=== PATIENT | female | born 1935 | race Caucasian/White ===

== ENCOUNTER → 2017-05-23 | Day surgery (SDC) | payer MEDICARE ==
[~2017-05-23] MED LIST: 1-ME1LIQ PO; ACETAMINOPHEN 1000 MG/100 ML VIAL IV ONE; AMLO10TA2 PO; ANAS1TAB PO; ASPI325T33 PO; ASPI81CH37 CHEW; ATOR10TA15 PO; BUPIVACAINE/EPINEPHRINE 0.25% PF 30 ML VIAL INFIL ONE; ENAL20TA PO; GABA100C4 PO; ISOSULFAN BLUE 50 MG/5 ML VIAL SQ ONE; KETOROLAC TROMETHAMINE 30 MG/ML (IVP) VIAL IV PUSH ONE; LACTATED RINGER'S 1000 ML INJ 1,000 ML ONE; LEVO.1 PO; LIDOCAINE 1%/EPINEPHrine 1:100,000 SOLN 20 ML VIAL ONE; LORA5SOL3 PO; METF1000 PO; METF500 PO; MIDAZOLAM HCL 2 MG/2 ML VIAL ONE; ONDANSETRON HCL 4 MG/2 ML VIAL IV PUSH ONE; PROPOFOL 100 MG/10 ML INJ IV ONE; SODIUM CHLORIDE 0.9% INJ 10 ML ONE; TRAM50TA PO; VASO10TA8 PO; ceFAZolin 2 GM PREMIX 50 ML ONE
--- NOTE | 2017-05-24 11:21 | RADONCOP ---
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 SURGEON: Yang Dueñas ANESTHESIA: General ESTIMATED BLOOD LOSS: Minimal INDICATIONS: Patient is a 81 year old female presenting with . She has elected to receive targeted intraoperative radiation therapy to the . DESCRIPTION OF PROCEDURE: Patient was taken to the operating room and placed on the table in the supine position. Following induction of general anesthesia, the and arm were prepped and draped sterilely. Ultrasound was performed of the breast to document the location of the breast malignancy. The wound was prepared for intraoperative radiation therapy. Based on the diameter of the cavity, a 4.0cm radiation applicator was selected for the delivery of intraoperative radiation therapy. The applicator was then sterilely mounted onto the Intrabeam Stand. Retracting sutures were placed within the skin to be used to retract the skin edges away from the radiation source. The 4.0cm Radiation applicator was then sterilely inserted into the wound. The superficial purse-string suture was tied down. Ultrasound was performed of the breast to document conformity of the surgical margins and the distance from the applicator to the skin surface (0.83cm). The retracting sutures were then secured and a moistened lap pad was placed on the skin surface, followed by an external radiation barrier. Intraoperative radiotherapy was then initiated by the Radiation Oncologist. Total treatment time was 25 minutes. Upon completion of the intraoperative radiotherapy treatment, the radiation applicator, purse-string sutures and retracting sutures were removed from the wound. The wound was once again irrigated. Hemostasis was confirmed. The patient was then turned back over to the surgeon, Yang Dueñas in stable condition for completion of surgical procedure. Luis Enrique Ontiveros MD 05/24/2017 11:21:21 AM This report was verified and signed electronically [facility] [address] [place] [address] RADIATION ONCOLOGY OPERATIVE REPORT Date: 05/23/2017 Patient Name: Leeann Camacho
--- NOTE | 2017-05-24 11:21 | RADONCENDT ---
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 FOLLOW UP PLAN: Patient to be seen in 6 weeks. Luis Enrique Ontiveros MD 05/24/2017 11:20:53 AM This report was verified and signed electronically [facility] [address] [facility] [place] [address] RADIATION ONCOLOGY END OF TREATMENT SUMMARY Date: 05/23/2017 Patient Name: Leeann Camacho Date of : 1935 Age: 81 Sex: Female
--- NOTE | 2017-05-24 20:17 | MP ---
cc: GABECHELSEAY DATE OF SURGERY: 05/23/2017 PREOPERATIVE DIAGNOSIS: Carcinoma of the right breast. POSTOPERATIVE DIAGNOSIS: Carcinoma of the right breast. OPERATION: 1. Needle localized wide excision, right breast, with right axillary sublingual nitroglycerin, biopsy and axillary sampling. 2. Intraoperative radiation therapy. SURGEON: Dr. Dueñas. ANESTHESIA: General. DORMITORY COUNSELOR: Tisha Wright MS3 ANESTHESIA: General. OPERATIVE FINDINGS The patient was found to have a palpable mass in the area of the guidewire which had been inserted preoperatively. The sentinel node was identified with heavy radioactivity. Lymphazurin was not used in this operation. OPERATIVE PROCEDURE The patient was brought to the operating room after having undergone needle localization of a mass in the right breast which had previously been biopsied. She also underwent radionuclide injection for purpose of identifying a sentinel node. After satisfactory general anesthesia had been obtained, the breast and right axilla were prepped and draped in the usual sterile fashion. The skin was marked with a sterile pen to make an elliptical incision between the guidewire and the nipple and areola. The incision was made carried out sharply through the subcutaneous tissue with cautery being used for hemostasis. The guidewire was identified and grasped within the parenchyma of the breast and amputated at the level of the skin. It was brought within the wound and flaps around the incision were made to leave approximately a centimeter of tissue for the radiation therapy. The mass was then grasped with Allis forceps and the needle and the mass were dissected free and sent for specimen mammography which revealed the presence of the lesion and the clip. It was then sent for permanent pathology. Hemostasis was strictly assured and a pursestring suture of zero Prolene was placed to encircle the tissue approximately a centimeter deep to the skin. The radiation probe was then selected at #4 and placed within the wound with the pursestring drawn tight but not tied. Ultrasound revealed good placement of the probe in the area. The probe was then placed within a sterile shield and attached to the radiation machine. The probe was then placed within the breast parenchyma by carefully guiding it directly. After proper placement was achieved, the pursestring was drawn tight and secured. The area was protected with sterile saline, soaked lap pads and the radiation shield was then built around the probe to protect the patient. The surgical team then left the room as the patient received 27 minutes of radiation therapy. At the conclusion of the radiation therapy the probe was removed after cutting the pursestring suture. It was then handed back to the physicist without incident. The area was made hemostatic once again and the skin was then closed with interrupted 4-0 PDS subcuticular stitches. Attention was then turned to the axilla which had a paresh on it from radiology to indicate the general location of the sentinel node. The skin was anesthetized with 0.5% Marcaine with epinephrine and a transverse infra-axillary incision was made and carried down sharply through the subcutaneous tissue with the cautery being used for hemostasis. An incision was deepened into the axilla proper by incising the clavipectoral fascia. The entire incision was deepened in the axilla and the sentinel node was identified with the navigator probe. The area was grasped with Allis forceps and the area of the sentinel node was dissected free using the harmonic scalpel. An extra section of fatty tissue with probable lymph nodes in it was sent as well as axillary sampling. The sentinel node itself was marked with a silk suture and sent for permanent pathology. Hemostasis was assured after which the subcutaneous tissue was closed with interrupted 3-0 Vicryl suture and the skin was then closed with interrupted 4-0 PDS subcuticular stitches. Steri-Strips were placed on both incisions and the patient was then awakened and taken from the operating room in satisfactory condition, having tolerated the procedure without problem. ESTIMATED BLOOD LOSS: Less than 15 mL. The instrument, sponge, needle counts were reported as being correct x2 at the end of procedure. MD SOLE Weller/JULITA /4:17 PM /7:56 PM
== END | disposition home or self-care (01) ==
LOC: ESDC 08:39
PROVIDERS: ATTEND Surgery
DX: C50.911 Malignant neoplasm of unspecified site of right female breast (principal)
CPT/HCPCS: 00400; 01610; 19125; 38525; 77290; 77300; 77334; 77370; 77424; 88307; J0131; J0690; J1885; J2250; J2405; J3010; J7120; 77469; Q9968

== ENCOUNTER → 2017-07-26 | Day surgery (SDC) | payer MEDICARE ==
[~2017-07-26] VITALS: Ht 170.2 cm; Wt 88.0 kg
[~2017-07-26] MED LIST changes: +ACETAMINOPHEN 1000 MG/100 ML 100 ML IV SCH; -ACETAMINOPHEN 1000 MG/100 ML VIAL IV ONE; -BUPIVACAINE/EPINEPHRINE 0.25% PF 30 ML VIAL INFIL ONE; +CHLORHEXIDINE GLUCONATE 2 % 1 PACK (2 CLOTHS) TOPICAL PRN; +INSULIN HUMAN REGULAR 1,000 UNITS/10 ML VIAL SQ PRN; -ISOSULFAN BLUE 50 MG/5 ML VIAL SQ ONE; -KETOROLAC TROMETHAMINE 30 MG/ML (IVP) VIAL IV PUSH ONE; -LACTATED RINGER'S 1000 ML INJ 1,000 ML ONE; +LACTATED RINGER'S 1000 ML IV PRN; -LIDOCAINE 1%/EPINEPHrine 1:100,000 SOLN 20 ML VIAL ONE; +METOPROLOL TARTRATE 25 MG TAB PO PRN; -MIDAZOLAM HCL 2 MG/2 ML VIAL ONE; -ONDANSETRON HCL 4 MG/2 ML VIAL IV PUSH ONE; +POVIDONE IODINE 5% (ANTISEPSIS KIT) 4 APPLICATIONS EACH NARE PRN; -PROPOFOL 100 MG/10 ML INJ IV ONE; +SODIUM CHLORID 0.9% 500 ML IV PRN; -SODIUM CHLORIDE 0.9% INJ 10 ML ONE; +ceFAZolin 2 GM PREMIX 50 ML IV SCH; -ceFAZolin 2 GM PREMIX 50 ML ONE
[2017-07-26 11:52] VITALS: BP 116/59; PULSE 86; RESP 20; TEMP 98.2; O2SAT 96
== END | disposition home or self-care (01) ==
LOC: HSDC 10:52
PROVIDERS: ATTEND Surgery
DX: Z45.2 Encounter for adjustment and management of vascular access device (principal); C50.211 Malignant neoplasm of upper-inner quadrant of right female breast; Z53.29 Procedure and treatment not carried out because of patient's decision for other reasons
CPT/HCPCS: 99211; G0463

== ENCOUNTER 2017-07-28 05:40 | Day surgery (SDC) | payer MEDICARE ==
[2017-07-28] VITALS (7 sets, daily range): BP systolic 132–142; BP diastolic 64–91; PULSE 72–81; RESP 18–20; TEMP 97.9–98.3; O2SAT 93–97
[~2017-07-28] VITALS: Ht 170.2 cm; Wt 88.0 kg
[~2017-07-28 05:40] MED LIST changes: -ACETAMINOPHEN 1000 MG/100 ML 100 ML IV SCH; -ANAS1TAB PO; -ASPI81CH37 CHEW; -CHLORHEXIDINE GLUCONATE 2 % 1 PACK (2 CLOTHS) TOPICAL PRN; -INSULIN HUMAN REGULAR 1,000 UNITS/10 ML VIAL SQ PRN; -LACTATED RINGER'S 1000 ML IV PRN; -METOPROLOL TARTRATE 25 MG TAB PO PRN; -POVIDONE IODINE 5% (ANTISEPSIS KIT) 4 APPLICATIONS EACH NARE PRN; -SODIUM CHLORID 0.9% 500 ML IV PRN; -ceFAZolin 2 GM PREMIX 50 ML IV SCH
[2017-07-28] MEDS ORDERED: ANAS1TAB PO (06:49)
[2017-07-28] MEDS ORDERED: ASPI81CH37 CHEW (06:49)
[2017-07-28 07:20] LABS: AUTOMATED NEUTROPHIL # 3.8 TH/MM3 (1.8-7.7); BASOPHIL % 0.6 % (0.0-2.0); EOSINOPHIL # 0.2 TH/MM3 (0-0.4); EOSINOPHIL % 3.3 % (0.0-4.0); HEMATOCRIT 35.8 % (35.0-46.0); HEMO FLAGS DIFF FINAL; LYMPH % 24.6 % (9.0-44.0); LYMPHOCYTE # 1.6 TH/MM3 (1.0-4.8); MEAN CORPUSCULAR HEMOGLOBIN 30.3 PG (27.0-34.0); MEAN CORPUSCULAR HGB CONC 33.3 % (32.0-36.0); MONO % 12.5 % (0.0-8.0); PLATELET COUNT 228 TH/MM3 (150-450); RED BLOOD COUNT 3.94 MIL/MM3 (4.00-5.30); RED CELL DISTRIBUTION WIDTH 13.1 % (11.6-17.2); WHITE BLOOD COUNT 6.5 TH/MM3 (4.0-11.0)
[2017-07-28 07:30] LABS: APTT (PATIENT) 23.7 SEC (24.3-30.1); INTERNATIONAL NORMALIZED RATIO 0.9 RATIO; PROTHROMBIN TIME - PATIENT 10.2 SEC (9.8-11.6)
[2017-07-28] MEDS ORDERED: POVIDONE IODINE 5% (ANTISEPSIS KIT) 4 APPLICATIONS EACH NARE SCH (07:30)
[2017-07-28] MEDS ORDERED: CHLORHEXIDINE GLUCONATE 2 % 1 PACK (2 CLOTHS) TOPICAL SCH (07:30)
[2017-07-28] MEDS ORDERED: ceFAZolin 2 GM PREMIX 50 ML - implanted port/tunneled catheter insertion IV SCH (07:30)
[2017-07-28] MEDS ORDERED: SODIUM CHLORIDE 0.9% 1000 ML IV SCH (07:30)
[2017-07-28] MEDS ORDERED: VANCOMYCIN 1000 MG/NS 250 ML - implanted port/tunneled catheter IV SCH ×2 (07:30)
[2017-07-28] MEDS ORDERED: fentaNYL CITRATE 250 MCG/5 ML AMP ONE (09:21)
[2017-07-28] MEDS ORDERED: MIDAZOLAM HCL 5 MG/5 ML VIAL ONE (09:21)
--- NOTE | 2017-07-28 10:23 | PD.RAD ---
Post Procedure Progress Note Pre Procedure Diagnosis: (1) Breast cancer Post Procedure Diagnosis: (1) Breast cancer Procedure Date: Jul 28, 2017 Supervising Radiologist: Praful Galindo Proceduralist/Assist: Ankit Orozco, RT(R), Jovany Ferrell RT(R)() Anesthesia: Conscious Sedation Plan of Activity Patient to Unit: [facility]U Patient Condition: Good See PACS Report for procedural detail/treatment Praful Galindo MD Jul 28, 2017 10:23
[2017-07-28] MEDS ORDERED: SODIUM CHLORIDE 0.9% FLUSH 10 ML FLUSH IVF PRN (10:30)
--- NOTE | 2017-07-28 11:44 | RADRPT ---
EXAM DATE/TIME: 07/28/2017 10:14 [place] COMPARISON: No previous studies available for comparison. INDICATIONS : Patient with history of breast cancer in need of port placement for chemotherapy. MEDICAL HISTORY : Diabetes type 2 Fall risk level 1 - sensorium and coordination int Hypercholesterolemia Hypertension Hypothyroidism No Previous Radiation Therapy Preferred Language for Healthcare Information (Kazakh) Stroke SURGICAL HISTORY : Thyroidectomy Right breast in 2017 Right breast lumpectomy Breast biopsy in 2017 Colonoscopy in 2010 ENCOUNTER: Initial ACUITY: 4-6 months PAIN SCORE: 0/10 FLUORO TIME: 0.30 minutes IMAGE SERIES: 1 SEDATION TIME: 25 minutes ACCESS: Right internal jugular vein SEDATION: 1.) 1 mg midazolam (Versed) IV 2.) 50 mcg fentanyl (Sublimaze) IV Prophylactic antibiotics were administered with appropriate pre-procedure timing. Vancomycin within 2 hours of procedure, Ancef (or alternative) within 1 hour of procedure. DEVICE: 1. 8 [place]ian single lumen Bard Power Port PROCEDURE : 1. Continuous pulse oximetry and EKG monitoring. 2. Intravenous conscious sedation. 3. Ultrasound guidance for venous access. 4. Fluoroscopic guided implantable central venous port placement. The patient was placed supine. The neck was prepped in sterile fashion. Full sterile technique was u sed, including cap, mask, sterile gloves and gown, and a large sterile sheet. Hand hygiene and 2% ch lorhexidine Betadine was utilized per protocol for cutaneous antisepsis with appropriate dry time for site. Sterile gel and sterile probe cover were utilized for ultrasound guidance. The skin and sub cutaneous tissues were infiltrated with local anesthetic solution. Under direct ultrasound guidance, central venous access was accomplished in the targeted vessel. The ultrasound images depicting access guidance were stored and saved to PACS for permanent record. A s ubcutaneous pocket was created using blunt dissection. The port was introduced to the pocket. The c atheter tubing was fed through a subcutaneous tunnel to the venotomy site. The catheter tubing was c ut to a suitable length and then was introduced through a valved Peel-Away sheath and positioned with catheter tubing tip at the cavo-atrial junction level. The pocket incision was closed with subcutic ular Vicryl suture. Steri-Strips were applied. The port was flushed and locked with heparin solutio n per protocol. Sterile dressing was applied to the site. The patient tolerated the procedure well. Conscious sedation was performed with the prescribed dosages and duration as above in the presence of an independent trained radiology nurse to assist in the monitoring of the patient. EKG and oximetry remained stable throughout the procedure. The patient tolerated the procedure well and there were no complications. The patient was sent to post anesthesia recovery in stable condition. CONCLUSION: Uncomplicated ultrasound and fluoroscopic guided implanted central venous port catheter placement as described in detail above. An 8 Cambodian Power port was placed. Praful Galindo MD on July 28, 2017 at 11:41 Board Certified Radiologist. This report was verified electronically.
== END 2017-07-28 12:45 | disposition home or self-care (01) ==
LOC: HROP 05:40 → HRIP 05:40 → HROP 12:45
PROVIDERS: ATTEND Internal Medicine Hematology & Oncology
DX: C50.919 Malignant neoplasm of unspecified site of unspecified female breast (principal); E11.9 Type 2 diabetes mellitus without complications; I10 Essential (primary) hypertension; E78.00 Pure hypercholesterolemia, unspecified; E03.9 Hypothyroidism, unspecified; Z85.3 Personal history of malignant neoplasm of breast; Z86.73 Personal history of transient ischemic attack (TIA), and cerebral infarction without residual deficits
CPT/HCPCS: 36561; 76937; 77001; 85025; 85610; 85730; 99152; 99153; C1788; J0690; J1642; J2250; J3010; J3370; J7030; J7050